=== PATIENT | male | born 1940 | race African-American/Black ===

== ENCOUNTER 2021-01-18 16:58 | Inpatient (IN) | payer MEDICARE ==
[~2021-01-18] VITALS: Ht 188 cm; Wt 79.8 kg
[2021-01-18] MEDS ORDERED: ASPI-1169 PO (17:02)
[2021-01-18 17:49] VITALS: BP 158/95
[2021-01-18] MEDS ORDERED: ESCI5TAB PO (17:53)
[2021-01-18] MEDS ORDERED: LISI20TA30 PO (17:53)
[2021-01-18] MEDS ORDERED: ONDA4TAB11 PO (17:53)
[2021-01-18] MEDS ORDERED: LOPE2TAB25 PO (17:53)
[2021-01-18] MEDS ORDERED: RIVA10TA PO (17:53)
[2021-01-18] MEDS ORDERED: TAMS-12 PO (17:53)
[2021-01-18] MEDS ORDERED: ACET325T53 PO (17:53)
[2021-01-18] MEDS ORDERED: SACC250C PO (17:53)
[2021-01-18] MEDS ORDERED: MAGNESIUM HYDROXIDE 30 ML UDC PO PRN (18:00)
[2021-01-18] MEDS ORDERED: ZOLPIDEM TARTRATE 5 MG TABLET PO PRN (18:00)
[2021-01-18] MEDS ORDERED: ACETAMINOPHEN 325 MG TABLET PO PRN ×2 (18:00→18:30)
[2021-01-18] MEDS ORDERED: MAG HYDROX/AL HYDROX/SIMETH 30 ML UDC PO PRN (18:00)
[2021-01-18] MEDS ORDERED: BLOOD SUGAR DIAGNOSTIC 1 EACH STRIP IN ONE (18:00)
[2021-01-18] MEDS ORDERED: hydrOXYzine PAMOATE 25 MG CAPSULE PO PRN (18:30)
[2021-01-18] MEDS ORDERED: LOPERAMIDE HCL (2 MG CAP) 2 MG CAPSULE PO PRN (18:30)
[2021-01-18] MEDS ORDERED: ONDANSETRON 4 MG TAB.RAPDIS PO PRN (18:30)
--- NOTE | 2021-01-18 18:47 | NUR ---
Pt. arrived in the unit via ambulance and transported via a gurney. Pt. admitted on 14 day hold and DTS and GD. Pt. was admitted after a suicidal attempt, he is still depressed, hopeless, with poor capacity for self care. Contraband done and v/s taken. Dr. Ho made aware of the admission with orders and Dr. Mcgraw reconciled the meds. Will endorse to the incoming nurse for the completion of the admission.
[2021-01-18 20:00] VITALS: BP 108/67
[2021-01-19 01:36] VITALS: BP 108/67
[2021-01-19] MEDS: LISINOPRIL (20MG) 20 MG TABLET PO SCH (07:07)
[2021-01-19 08:00] VITALS: BP 124/67
[2021-01-19 08:15] LABS: ALBUMIN 2.8 g/dL (3.4-5.0); BILIRUBIN,TOTAL 0.7 mg/dL (0.2-1.0); CALCIUM, SERUM 8.6 mg/dL (8.5-10.1); CREATININE 1.3 mg/dL (0.6-1.3); POTASSIUM 3.7 mmol/L (3.5-5.1); TOTAL PROTEIN, SERUM 6.8 g/dL (6.4-8.2)
[2021-01-19] MEDS: TAMSULOSIN 0.4 MG CAP.SR.24H PO SCH (08:38)
[2021-01-19] MEDS: ACIDOPHILUS/BULGARICUS 1 EACH TAB.CHEW PO SCH ×2 (08:38→16:33)
[2021-01-19] MEDS ORDERED: Medication Not On Formulary EA (Escitalopram Oxalate (Lexapro) 5 MG) PO SCH (09:00)
--- NOTE | 2021-01-19 09:08 | NUR ---
RN-CO: DR KEY MADE AWARE THAT PT CAME HERE IN GPS ON A 14 DAY HOLD. STATED " YES I KNOW."
[2021-01-19 14:25] LABS: CHOLESTEROL 166 mg/dL (<200); HDL CHOLESTEROL 22 mg/dL (40-60); LDL 113 mg/dL (0-99); TRIGLYCERIDES 154 mg/dL (30-150)
[2021-01-19 16:00] VITALS: BP 134/69
[2021-01-19] MEDS: RIVAROXABAN 10 MG TABLET PO SCH (16:32)
[2021-01-19 20:00] VITALS: BP 136/73
[2021-01-20] MEDS: LISINOPRIL (20MG) 20 MG TABLET PO SCH (06:11)
[2021-01-20 08:00] VITALS: BP 144/79
[2021-01-20] MEDS: ACIDOPHILUS/BULGARICUS 1 EACH TAB.CHEW PO SCH ×2 (08:24→17:29)
[2021-01-20] MEDS: TAMSULOSIN 0.4 MG CAP.SR.24H PO SCH (08:24)
[2021-01-20] MEDS: ESCITALOPRAM OXALATE (10 MG) 10 MG TABLET PO SCH (08:25)
--- NOTE | 2021-01-20 15:15 | NUR ---
Initial D/C Plan: The pt. states that he has [facility] [facility] [address] [phone][facility] The pt. stated he is agreeable to go to a facility and stated his daughter has found a facility that they are interested in SW called and spoke with the pt.'s daughter, Kimmie [phone] who stated that she is interested in the pt. going to [facility][[address], [place] [id number] ]. Per Kimmie, she spoke with Natalee Sykes cell:[phone] who stated they will accept the pt. when ready for discharge. DINO called Natalee and left her a voicemail. Pt.'s DPOA/ ex- Eda Batista [phone] is also agreeable for pt. to D/C to [facility]. DINO will continue to collaborate with IDT to ensure safe & proper discharge.
--- NOTE | 2021-01-20 15:16 | NUR ---
Point of Contact: DINO established contact with the pt.'s daughter, Kimmie [phone] & DPOA/ex-, Eda Batista [phone] who will both be involved in pt.'s discharge planning. DINO will be available as needed. Per Eda, I provided her contact information to Jane GONZALES#[phone] at the finance office as they are assisting the pt. with applying for [facility].
--- NOTE | 2021-01-20 15:45 | NUR ---
D/C planning : Per pt.'s daughter, Kimmie [phone] & DPOA/ex-, Eda Batista [phone] DINO faxed clinicals to [facility] TEL: [phone] fax: [phone]. DINO received call back from Natalee at [phone] stating that they will be accepting pt. once cleared by psychiatry. Noted.
[2021-01-20 16:00] VITALS: BP 154/84
[2021-01-20] MEDS: RIVAROXABAN 10 MG TABLET PO SCH (17:30)
[2021-01-20 20:00] VITALS: BP 130/67
[2021-01-21] MEDS: LISINOPRIL (20MG) 20 MG TABLET PO SCH (06:07)
[2021-01-21 07:34] LABS: BASOPHILS % (AUTO) 0.3 % (0.0-2.0); EOSINOPHILS % (AUTO) 1.8 % (0.0-6.0); HEMATOCRIT 44 % (39-51); HEMOGLOBIN 14.6 g/dL (13.5-17.5); LYMPHOCYTES # (AUTO) 0.5 K/uL (0.8-4.8); LYMPHOCYTES % (AUTO) 5.2 % (20.0-44.0); MEAN CORPUSCULAR HGB CONC 34 g/dl (31.0-36.0); MEAN CORPUSCULAR VOLUME 91 fL (80-96); MONOCYTES # (AUTO) 0.5 K/uL (0.1-1.30); MONOCYTES % (AUTO) 5.3 % (2.0-12.0); NEUTROPHILS # (AUTO) 8.5 K/uL (1.8-8.9); NEUTROPHILS % (AUTO) 87.4 % (43.0-81.0); PLATELET COUNT (AUTO) 255 K/uL (150-450); RED BLOOD CELL COUNT(AUTO) 4.79 MIL/uL (4.5-6.0); WHITE BLOOD COUNT (AUTO) 9.7 K/uL (4.3-11.0)
[2021-01-21 07:52] LABS: ALBUMIN 2.7 g/dL (3.4-5.0); BILIRUBIN,TOTAL 0.9 mg/dL (0.2-1.0); CALCIUM, SERUM 8.6 mg/dL (8.5-10.1); CREATININE 1.3 mg/dL (0.6-1.3); MAGNESIUM 2.3 mg/dL (1.8-2.4); PHOSPHORUS 3.3 mg/dL (2.5-4.9); POTASSIUM 3.8 mmol/L (3.5-5.1); TOTAL PROTEIN, SERUM 7.1 g/dL (6.4-8.2)
[2021-01-21 08:00] VITALS: BP 153/75
[2021-01-21] MEDS: ACIDOPHILUS/BULGARICUS 1 EACH TAB.CHEW PO SCH ×2 (08:49→17:56)
[2021-01-21] MEDS: ESCITALOPRAM OXALATE (10 MG) 10 MG TABLET PO SCH (08:50)
[2021-01-21] MEDS: TAMSULOSIN 0.4 MG CAP.SR.24H PO SCH (08:50)
--- NOTE | 2021-01-21 10:07 | NUR ---
Family Contact: DINO contacted patient's daughter, Kimmie, . Kimmie stated that she agrees with D/C plan to [facility] (ph: [phone]). Kimmie requested for DINO to notify her prior to pts D/C to [facility]. Kimmie stated that Eda could fax POA documents to the hospital. DINO provided Kimmie with unit fax number.
[2021-01-21 16:00] VITALS: BP 146/86
[2021-01-21] MEDS: RIVAROXABAN 10 MG TABLET PO SCH (17:56)
[2021-01-21 20:00] VITALS: BP 145/80
--- NOTE | 2021-01-22 01:40 | NUR ---
RN NOTE PATIENT IS SLEEPING COMFORTABLY, NO BEHAVIOR EPISODES NOTED.
[2021-01-22] MEDS: LISINOPRIL (20MG) 20 MG TABLET PO SCH (06:00)
--- NOTE | 2021-01-22 06:08 | NUR ---
RN NOTE: MEDICATION REFUSAL PATIENT REFUSED TO TAKE LISINOPRIL AT 0600, BP 112/64, 65. PATIENT STATED," SINCE MY BP IS GOOD , I DON'T WANT TO TAKE THIS MEDICINE AT THIS TIME." DESPITE OF EXPLANATIONS, PATIENT CONTINUED TO REFUSE. WILL CONTINUE TO MONITOR.
[2021-01-22 08:00] VITALS: BP 131/62
[2021-01-22] MEDS: ACIDOPHILUS/BULGARICUS 1 EACH TAB.CHEW PO SCH ×2 (09:16→17:40)
[2021-01-22] MEDS: TAMSULOSIN 0.4 MG CAP.SR.24H PO SCH (09:16)
[2021-01-22] MEDS: ESCITALOPRAM OXALATE (10 MG) 10 MG TABLET PO SCH (09:17)
[2021-01-22 15:07] LABS: *SPE A/G RATIO 0.8 (0.7-1.7); *SPE ALBUMIN 2.9 g/dL (2.9-4.4); *SPE ALPHA-1-GLOBULIN 0.4 g/dL (0.0-0.4); *SPE ALPHA-2-GLOBULIN 0.9 g/dL (0.4-1.0); *SPE BETA GLOBULIN 0.9 g/dL (0.7-1.3); *SPE GLOBULIN, TOTAL 3.6 g/dL (2.2-3.9); *SPE M-SPIKE Not Observed g/dL (Not Observed); *SPEGAMMA GLOBULIN 1.4 g/dL (0.4-1.8)
[2021-01-22 16:00] VITALS: BP 143/85
[2021-01-22] MEDS: RIVAROXABAN 10 MG TABLET PO SCH (17:40)
[2021-01-22 19:45] VITALS: BP 118/69
[2021-01-23] MEDS: LISINOPRIL (20MG) 20 MG TABLET PO SCH (07:19)
[2021-01-23 08:00] VITALS: BP 120/72
[2021-01-23] MEDS: TAMSULOSIN 0.4 MG CAP.SR.24H PO SCH (08:05)
[2021-01-23] MEDS: ACIDOPHILUS/BULGARICUS 1 EACH TAB.CHEW PO SCH ×2 (08:05→16:19)
[2021-01-23] MEDS: ESCITALOPRAM OXALATE (10 MG) 10 MG TABLET PO SCH (08:05)
[2021-01-23 16:03] VITALS: BP 148/70
[2021-01-23] MEDS: RIVAROXABAN 10 MG TABLET PO SCH (16:20)
[2021-01-23 19:50] VITALS: BP 107/52
[2021-01-24] MEDS: LISINOPRIL (20MG) 20 MG TABLET PO SCH (06:00)
--- NOTE | 2021-01-24 06:21 | NUR ---
GPS RN NOTES: PATIENT REFUSED AM LISINOPRIL 20MG ORDERED. 0600: BP120/72.
[2021-01-24 08:00] VITALS: BP 126/67
[2021-01-24] MEDS: ACIDOPHILUS/BULGARICUS 1 EACH TAB.CHEW PO SCH ×2 (09:24→17:56)
[2021-01-24] MEDS: TAMSULOSIN 0.4 MG CAP.SR.24H PO SCH (09:24)
[2021-01-24] MEDS: ESCITALOPRAM OXALATE (10 MG) 10 MG TABLET PO SCH (09:24)
[2021-01-24] MEDS ORDERED: KEY,NONCONTROL,TO KEEP IN PYXI 1 EA MC ONE (11:32)
[2021-01-24 16:00] VITALS: BP 149/91
--- NOTE | 2021-01-24 16:00 | NUR ---
GPS/RN PT REFUSED PICTURES OFFERED X3
--- NOTE | 2021-01-24 16:25 | NUR ---
Discharge Plan: Pt. will be discharged to [facility] [[address] [place] [address];[phone]] at 6 pm 01/27/2021. Pt. will be transported via [facility], per nursing. Pt.s DPOA/ex-, Eda Cook [phone] and daughter, Kimmie have been notified of this discharge and are agreeable. SW also discussed discharge with pt. and he is agreeable. The pt.s mood as of now is euthymic and pt. remains calm & cooperative. Pt. denies SI/HI and denies hallucinations. Pt. will be under the care of assigned psychiatrist and appliance worker at [facility] upon admission.
--- NOTE | 2021-01-24 17:32 | NUR ---
GPS/RN Pt. will be discharged to [facility] . CALLED FACILITY [phone] FOR REPORT. LEFT THE GPS PHONE NUMBER WITH CYLINDER DYER TO CALL BACK THE NURSE WAS NOT AVAILABLE.
[2021-01-24] MEDS: RIVAROXABAN 10 MG TABLET PO SCH (18:01)
--- NOTE | 2021-01-24 18:17 | NUR ---
GPS/RN REPORT GIVEN TO ISAK HERRON AT [facility]
--- NOTE | 2021-01-24 19:05 | NUR ---
GPS/RN AMBULANCE WILL COME FOR PLAYER DEVELOPMENT MANAGER IN 20 MIN PER DISPATCHER.
--- NOTE | 2021-01-24 20:17 | NUR ---
GPS FORECLOSURE HOME INSPECTOR NOTE; PATIENT WAS DISCHARGED TO [facility] ([facility] LOCATED AT [address] [place] [address], ([phone]). PT WAS TRANSPORTED VIA [facility] AT 2014. PATIENT'S DAUGHTER SOULEYMANE MURDOCK [phone] WAS NOTIFIED OF THIS DISCHARGE. UPON DISCHARGE, THE PATIENT PRESENTED CALM AND COOPERATIVE. PATIENT DENIES ANY SUICIDAL OR HOMICIDAL IDEATION AND STATED THAT HE DOES NOT HAVE ANY AUDITORY OR VISUAL HALLUCINATIONS. PATIENT WILL BE UNDER THE CARE OF A PSYCHIATRIST AND WANT AD RECEIVER AT [facility] ([facility]) AND WILL BE ASSIGNED PSYCHIATRIST AND WANT AD RECEIVER UPON ADMISSION.
== END 2021-01-24 20:35 | DRG 885 ==
LOC: GPS 16:58
PROVIDERS: ADMIT Psychiatry & Neurology Psychiatry; ATTEND Registered Nurse
DX: F32.2 Major depressive disorder, single episode, severe without psychotic features (principal); N18.9 Chronic kidney disease, unspecified; N17.9 Acute kidney failure, unspecified; E44.0 Moderate protein-calorie malnutrition; I10 Essential (primary) hypertension; I48.0 Paroxysmal atrial fibrillation; F41.9 Anxiety disorder, unspecified; I12.9 Hypertensive chronic kidney disease with stage 1 through stage 4 chronic kidney disease, or unspecified chronic kidney disease; N40.0 Benign prostatic hyperplasia without lower urinary tract symptoms; Z91.81 History of falling; Z79.01 Long term (current) use of anticoagulants
CPT/HCPCS: 36415; 80053-TC; 80061-TC; 82550-TC; 82962-TC; 83735-TC; 83970; 84100-TC; 84155; 84165; 85025-TC; 87081-TC; Q0177